=== PATIENT | male | born 1995 | race Caucasian/White ===

== ENCOUNTER 2022-12-22 22:37 | Emergency (ER) | payer SELFPAY ==
[~2022-12-22] VITALS: Ht 177.8 cm; Wt 82.0 kg
[2022-12-22 22:49] VITALS: BP 140/84
[2022-12-22] MEDS ORDERED: NAPROXEN 375MG TABLET PO ONE (23:45)
[2022-12-22] MEDS ORDERED: ACETAMINOPHEN 325MG TABLET PO ONE (23:45)
[2022-12-23] MEDS ORDERED: LIDOCAINE HCL/PF 1% 10 MG/ML 5ML VIAL INFIL ONE (01:00)
[2022-12-23] MEDS ORDERED: BO1 TP (03:07)
[2022-12-23] MEDS ORDERED: NAPR500T7 MT (03:14)
[2022-12-23] MEDS ORDERED: BACITRACIN ZINC OINT UDPKT TOP ONE (03:30)
== END 2022-12-23 03:59 | disposition home or self-care (01) ==
LOC: ER 22:37
DX: M79.672 Pain in left foot (principal)
CPT/HCPCS: 11740; 73630; 73660; 99284; J3490